=== PATIENT | male | born 1995 | race Caucasian/White ===

== ENCOUNTER 2017-04-18 14:54 | Emergency (ER) | payer MEDICAID ==
[~2017-04-18] VITALS: Ht 175.3 cm; Wt 61.6 kg
[~2017-04-18 14:54] MED LIST: AMOX1TAB64 PO; HYDR-3237 PO
[2017-04-18 15:03] VITALS: BP 120/78
[2017-04-18] MEDS ORDERED: IBUPROFEN 200 MG TABLET ONE (15:23)
[2017-04-18] MEDS ORDERED: IBUPROFEN 200 MG TABLET PO ONE (15:30)
== END 2017-04-18 15:35 | disposition home or self-care (01) ==
LOC: ED 15:00
DX: H66.002 Acute suppurative otitis media without spontaneous rupture of ear drum, left ear (principal)
CPT/HCPCS: 99283

== ENCOUNTER 2018-05-02 18:12 | Emergency (ER) | payer SELFPAY ==
[~2018-05-02] VITALS: Ht 175.3 cm; Wt 62.9 kg
[2018-05-02 18:24] VITALS: BP 117/81
== END 2018-05-02 18:59 | disposition home or self-care (01) ==
LOC: ED 18:53
DX: K02.9 Dental caries, unspecified (principal); K08.89 Other specified disorders of teeth and supporting structures
CPT/HCPCS: 99283

== ENCOUNTER 2019-09-01 14:29 | Emergency (ER) | payer MEDICAID ==
[~2019-09-01] VITALS: Ht 175.3 cm; Wt 59.7 kg
[2019-09-01 14:32] VITALS: BP 116/80
[2019-09-01] MEDS ORDERED: PROPARACAINE OPHTH 0.5%, 15ML ONE (14:38)
[2019-09-01] MEDS ORDERED: FLUORESCEIN OPHTHALMIC 1 MG STRIP ONE (14:38)
--- NOTE | 2019-09-01 14:48 | NUR ---
VISUAL ACUITY PERFORMED. HE HAS WALKED TO ROOM 43 FROM THE TRIAGE STATION WITH A STEADY GAIT.
--- NOTE | 2019-09-01 15:04 | NUR ---
MD IS AT TH BEDSIDE FOR ASSESSMENT
--- NOTE | 2019-09-01 15:05 | NUR ---
KURT (RN) IS ASSUMING CARE OF THIS PT WHILE I HAVE A LUNCH BREAK. SBAR REPORT WAS EXCHANGED AT THE BEDSIDE.
--- NOTE | 2019-09-01 15:20 | NUR ---
BREAK RN: ASSUMED CARE FOR DISCHARGE ONLY Patient/Caregiver given discharge instructions and they have confirmed that they understand the instructions. Patient ambulatory with steady gait.
== END 2019-09-01 15:47 | disposition home or self-care (01) ==
LOC: ED 15:21
DX: H10.021 Other mucopurulent conjunctivitis, right eye (principal); F17.290 Nicotine dependence, other tobacco product, uncomplicated; Z72.9 Problem related to lifestyle, unspecified
CPT/HCPCS: 99283; 99406

== ENCOUNTER 2020-07-25 00:07 | Emergency (ER) | payer MEDICAID ==
[~2020-07-25] VITALS: Ht 175.3 cm; Wt 61.6 kg
--- NOTE | 2020-07-25 01:25 | NUR ---
survey analyst: pt from lobby to room 2
--- NOTE | 2020-07-25 01:26 | NUR ---
Walks to room 2 in [facility], changing to gown.
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
--- NOTE | 2020-07-25 01:53 | NUR ---
PT IS RESTING IN BED. SPLINT IMPLEMENTED FOR PT TO IMMOBILIZE CLAVICLE FX. NADN. PT EDUCATED ON IMPORTANCE OF SLING. NO ADDITONAL QUESTIONS OR NEEDS AT THIS TIME. WCTM.
[2020-07-25 02:11] VITALS: BP 124/74
== END 2020-07-25 02:13 | disposition home or self-care (01) ==
LOC: ED 01:30
DX: S42.034A Nondisplaced fracture of lateral end of right clavicle, initial encounter for closed fracture (principal); S43.101A Unspecified dislocation of right acromioclavicular joint, initial encounter; X58.XXXA Exposure to other specified factors, initial encounter; Y93.89 Activity, other specified; Y92.89 Other specified places as the place of occurrence of the external cause; Y99.8 Other external cause status
CPT/HCPCS: 99283